=== PATIENT | female | born 1980 ===

== ENCOUNTER 2022-01-02 19:26 | Emergency (ER) | payer BC ==
[2022-01-02] MEDS ORDERED: Bacitracin Oint 1 GM U/D Packet TOP ONE (19:49)
[2022-01-02] MEDS ORDERED: Lidocaine 1% 30 ML SDV INJECT ONE (19:49)
== END 2022-01-02 20:48 | disposition home or self-care (01) ==
LOC: DL.ED 19:26
DX: S91.111A Laceration without foreign body of right great toe without damage to nail, initial encounter (principal); F17.210 Nicotine dependence, cigarettes, uncomplicated; Z88.0 Allergy status to penicillin; Z91.018 Allergy to other foods; W20.8XXA Other cause of strike by thrown, projected or falling object, initial encounter
CPT/HCPCS: 12001; 73660-T5; 99283